=== PATIENT | female | born 1955 | race Caucasian/White ===

== ENCOUNTER 2016-06-17 05:54 | Day surgery (SDC) | payer OTHER ==
--- NOTE | ~2016-06-17 | EGD ---
EGD REPORT [facility] [address] [address] NAME: GERALDINE FOX : [birth year] STATUS : REG [facility] [place] PAT#: [id number] AGE: 60 ADM/REG DATE : 06/17/16 MR#: [id number] REPORT SERV DATE: 06/17/16 DICTATED BY: JEFF JACKMAN DATE: 06/17/16 REPORT STATUS : Draft TRANSCRIBED BY: [employer] DATE: 06/17/16 [facility] Patient Name: Geraldine Fox Date of : 1955 Attending MD: JEFF JACKMAN, Procedure Date No Time: 06/17/2016 Procedure: Upper GI endoscopy Indications: Epigastric abdominal pain, Nausea with vomiting Referring MD: VIKTOR GUEVARA Medicines: Monitored Anesthesia Care Complications: No immediate complications. Estimated blood loss: None. Procedure: Pre-Anesthesia Assessment: - ASA Grade Assessment: II - A patient with mild systemic disease. After obtaining informed consent, the endoscope was passed under direct vision. Throughout the procedure, the patient's blood pressure, pulse, and oxygen saturations were monitored continuously. The GIF [id number] [id number] was introduced through the mouth, and advanced to the second part of duodenum. The upper GI endoscopy was accomplished without difficulty. The patient tolerated the procedure well. Findings: The esophagus was normal. Patchy mild inflammation characterized by erythema was found in the entire examined stomach. Biopsies were taken with a cold forceps for histology. Verification of patient identification for the specimen was done. Estimated blood loss was minimal. The cardia and gastric fundus were normal on retroflexion. The examined duodenum was normal. Multiple biopsies were obtained in the 2nd part of the duodenum with cold forceps for histology. Impression: - Normal esophagus. - Gastritis. Biopsied. - Normal examined duodenum. - Multiple biopsies were obtained in the 2nd part of the duodenum. Recommendation: - Patient has a contact number available for emergencies. The signs and symptoms of potential delayed complications were discussed with the patient. Return to normal activities tomorrow. Written discharge instructions were provided to the patient. - Return to previous diet. EGD REPORT [facility] [address] [address] NAME: GERALDINE FOX : [birth year] STATUS : REG [facility] PAT#: [id number] AGE: 60 ADM/REG DATE : 06/17/16 MR#: [id number] REPORT SERV DATE: 06/17/16 DICTATED BY: JEFF JACKMAN DATE: 06/17/16 REPORT STATUS : Draft TRANSCRIBED BY: [employer] DATE: 06/17/16 - Continue present medications. - Await pathology results. - Return to GI office in 3 weeks. Procedure Code(s): --- Professional --- 24584, Esophagogastroduodenoscopy, flexible, transoral; with biopsy, single or multiple Diagnosis Code(s): --- Professional --- K29.70, Gastritis, unspecified, without bleeding R10.13, Epigastric pain R11.2, Nausea with vomiting, unspecified CPT copyright 2013 [employer]. All rights reserved. The codes documented in this report are preliminary and upon carpenter mine review may be revised to meet current compliance requirements. JEFF JACKMAN, 06/17/2016 7:39 AM Number of Addenda: 0 Note Initiated On: 06/17/2016 7:04 AM Scope Withdrawal Time 0 hours 0 minutes 0 seconds [address] [id number]
--- NOTE | ~2016-06-17 | EGD ---
EGD REPORT [facility] [address] [address] NAME: GERALDINE MURRY : [birth year] STATUS : REG [facility] [place] PAT#: [id number] AGE: 60 ADM/REG DATE : 06/17/16 MR#: [id number] REPORT SERV DATE: 06/17/16 DICTATED BY: JEFF JACKMAN DATE: 06/17/16 REPORT STATUS : Draft TRANSCRIBED BY: [employer] DATE: 06/17/16 Endoscopy Center Patient Name: Geraldine Murry Date of : 1955 Attending MD: JEFF JACKMAN, Procedure Date No Time: 06/17/2016 Procedure: Colonoscopy Indications: Chronic diarrhea Referring MD: VIKTOR GUEVARA Medicines: Monitored Anesthesia Care Complications: No immediate complications. Estimated blood loss: None. Procedure: Pre-Anesthesia Assessment: - ASA Grade Assessment: II - A patient with mild systemic disease. After I obtained informed consent, the scope was passed under direct vision. Throughout the procedure, the patient's blood pressure, pulse, and oxygen saturations were monitored continuously. The PCF [id number] was introduced through the anus and advanced to the terminal ileum. The colonoscopy was performed without difficulty. The patient tolerated the procedure well. The quality of the bowel preparation was adequate. Findings: The perianal and digital rectal examinations were normal. Normal mucosa was found in the entire colon. Biopsies were taken with a cold forceps for histology. Verification of patient identification for the specimen was done. Estimated blood loss was minimal. Internal hemorrhoids were found, and they were Grade I (internal hemorrhoids that do not prolapse). The exam was otherwise without abnormality. Impression: - Normal mucosa in the entire examined colon. Biopsied. - Internal hemorrhoids. - The examination was otherwise normal. Recommendation: - Patient has a contact number available for emergencies. The signs and symptoms of potential delayed complications were discussed with the patient. Return to normal activities tomorrow. Written discharge instructions were provided to the patient. - Return to previous diet. - Continue present medications. - Await pathology results. - Repeat colonoscopy in 10 years for screening purposes. EGD REPORT [facility] [address] [place], [place] [address]. [address] NAME: GERALDINE MURRY : [birth year] STATUS : REG [facility]#: [id number] AGE: 60 ADM/REG DATE : 06/17/16 MR#: [id number] REPORT SERV DATE: 06/17/16 DICTATED BY: JEFF JACKMAN DATE: 06/17/16 REPORT STATUS : Draft TRANSCRIBED BY: [employer] DATE: 06/17/16 - Return to GI clinic in 3 weeks. Procedure Code(s): --- Professional --- 14186, Colonoscopy, flexible, proximal to splenic flexure; with biopsy, single or multiple Diagnosis Code(s): --- Professional --- K64.0, First degree hemorrhoids K52.9, Noninfective gastroenteritis and colitis, unspecified CPT copyright 2013 [employer]. All rights reserved. The codes documented in this report are preliminary and upon stacker and sorter operator review may be revised to meet current compliance requirements. JEFF JACKMAN, 06/17/2016 7:40 AM Number of Addenda: 0 Note Initiated On: 06/17/2016 6:55 AM Scope Withdrawal Time 0 hours 8 minutes 14 seconds [address] [facility] [place] [address]
[~2016-06-17 05:54] MED LIST: ASA5GR PO; CELEXA20 PO; COREG6 PO; ENABLEX7.5 PO; LAMICTAL200 MG PO; METPAKSF PO; PROTONIX PO; TOPROL XL200 MG PO; V5 PO; VIST25 PO; ZOL50 PO
== END 2016-06-17 23:59 | disposition home health service (06) ==
LOC: DMU 05:54
PROVIDERS: Internal Medicine Gastroenterology
PROC: 0DBE8ZX Excision of Large Intestine, Via Natural or Artificial Opening Endoscopic, Diagnostic (ICD-10-PCS; 2016-06-17)
PROC: 0DBA8ZX Excision of Jejunum, Via Natural or Artificial Opening Endoscopic, Diagnostic (ICD-10-PCS; principal; 2016-06-17 07:00)
PROC: 0DB68ZX Excision of Stomach, Via Natural or Artificial Opening Endoscopic, Diagnostic (ICD-10-PCS; 2016-06-17 07:00)
DX: K64.0 First degree hemorrhoids (principal); K29.70 Gastritis, unspecified, without bleeding; K52.9 Noninfective gastroenteritis and colitis, unspecified; J44.9 Chronic obstructive pulmonary disease, unspecified; F31.9 Bipolar disorder, unspecified; I48.91 Unspecified atrial fibrillation; I10 Essential (primary) hypertension; F17.200 Nicotine dependence, unspecified, uncomplicated; M19.90 Unspecified osteoarthritis, unspecified site; F41.9 Anxiety disorder, unspecified; Z90.710 Acquired absence of both cervix and uterus; Z88.8 Allergy status to other drugs, medicaments and biological substances; Z90.49 Acquired absence of other specified parts of digestive tract; Z98.890 Other specified postprocedural states
CPT/HCPCS: 88305